=== PATIENT | male | born 1945 | race Caucasian/White ===

== ENCOUNTER → 2019-12-10 | Outpatient (CLI) | payer OTHER, BC | LOC: RAD 10:51 | DX: J98.11 Atelectasis (principal); M47.814 Spondylosis without myelopathy or radiculopathy, thoracic region; Z95.0 Presence of cardiac pacemaker ==

== ENCOUNTER → 2020-08-20 | Outpatient (CLI) | payer OTHER, BC | LOC: LAB 09:26 | PROVIDERS: ATTEND Internal Medicine | DX: Z20.828 Contact with and (suspected) exposure to other viral communicable diseases (principal) ==

== ENCOUNTER 2020-12-22 17:46 | Inpatient (IN) | payer OTHER, BC ==
[~2020-12-22] VITALS: Ht 172.7 cm; Wt 77.6 kg
[2020-12-22 17:49] VITALS: BP 164/92
[2020-12-22 18:44] LABS: ABSOLUTE NEUTROPHILS 6.4 thou/uL (1.4-8.2); BASOPHILS 0.8 % (0.0-2.0); HEMOGLOBIN 12.9 gm/dL (14.0-18.0); LYMPHOCYTES 11.8 % (24.0-44.0); MCH 29.5 pg (26.0-34.0); MCHC 33.9 g/dL (28.0-37.0); MCV 86.9 fL (80.0-100.0); MONOCYTES 8.1 % (1.0-8.0); PLATELET COUNT 247 thou/uL (150-400); POLYS 79.3 % (36.0-66.0); RBC 4.38 mil/uL (4.50-6.00); RDW 12.9 % (10.5-14.5)
[2020-12-22 18:52] LABS: ANION GAP 11 mmol/L (7-16); BUN 36 mg/dL (7-18); CALCIUM 9.1 mg/dL (8.5-10.1); CHLORIDE 103 mmol/L (98-107); CO2 26 mmol/L (21-32); CREATININE 1.7 mg/dL (0.7-1.3); GLUCOSE 85 mg/dL (74-106); SODIUM 140 mmol/L (136-145)
[2020-12-22] MEDS ORDERED: TRELEGY ELLIPT1 EACH INH ×2 (18:55)
[2020-12-22] MEDS ORDERED: LOSARTAN POTAS100 MG PO ×2 (18:56)
[2020-12-22] MEDS ORDERED: METFORMIN HCL500 MG PO ×2 (18:56)
[2020-12-22] MEDS ORDERED: POTASSIUM CHLO10 ME1 PO ×2 (18:57)
[2020-12-22 18:58] LABS: APTT 22.9 Seconds (24.5-32.8); INR 1.07; PROTIME 11.6 Seconds (9.3-11.4)
[2020-12-22] MEDS ORDERED: AMLODIPINE BESY10 MG PO ×2 (18:58)
[2020-12-22] MEDS ORDERED: NITROSTAT0.4 M1 SUBLING ×2 (18:59)
[2020-12-22] MEDS ORDERED: VENTOLIN HFA 1818 GM INH ×2 (19:00)
[2020-12-22] MEDS ORDERED: FINASTERIDE5 MG PO ×2 (19:00)
[2020-12-22] MEDS ORDERED: TAMSULOSIN HCL0.4 MG PO ×2 (19:00)
[2020-12-22] MEDS ORDERED: DILT-XR180 MG PO ×2 (19:01)
[2020-12-22] MEDS ORDERED: SINGULAIR 10 MG10 M1 PO ×2 (19:01)
[2020-12-22] MEDS ORDERED: MUCINEX600 MG PO ×2 (19:01)
[2020-12-22] MEDS ORDERED: FUROSEMIDE 20 M20 M1 PO ×2 (19:01)
[2020-12-22] MEDS ORDERED: ASA81BEC PO ×2 (19:02)
[2020-12-22 19:03] LABS: ALBUMIN 3.7 g/dL (3.4-5.0); SGOT 18 U/L (15-37); SGPT 25 U/L (16-63); TOTAL BILIRUBIN 0.4 mg/dL (0.2-1.0); TOTAL PROTEIN 7.4 g/dL (6.4-8.2); TROPONIN-I <0.06 ng/mL (<0.06)
[2020-12-22 19:57] VITALS: BP 176/84
[2020-12-22 20:26] VITALS: BP 178/78
[2020-12-22 21:22] VITALS: BP 191/95
[2020-12-22] MEDS ORDERED: LIPITOR40 MG PO ×2 (23:57)
[2020-12-23 03:09] VITALS: BP 181/85
[2020-12-23 05:19] LABS: CHOLESTEROL 101 mg/dL (<200); HDL CHOLESTEROL 34 mg/dL (>40); LDL CHOLESTEROL 53 mg/dL (<100); TRIGLYCERIDE 71 mg/dL (<150); VLDL 14 mg/dL (<40)
[2020-12-23 05:26] LABS: CALCIUM 8.6 mg/dL (8.5-10.1); CREATININE 1.4 mg/dL (0.7-1.3); POTASSIUM 3.6 mmol/L (3.5-5.1)
[2020-12-23 05:51] LABS: SERUM ASSESSMENT Clear
--- NOTE | 2020-12-23 07:04 | EKG ---
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
[2020-12-23 08:00] VITALS: BP 175/78
--- NOTE | 2020-12-23 08:20 | NUR ---
ASSUMED PT CARE AT 0700. 0800 ASSESSMENT PERFORMED CHARTED. VSS. PTS GOAL TODAY IS POSSIBLE PACEMAKER BATTERY REPLACEMENT. PAIN MED ADMINISTERED FOR LEFT SHOULDER PAIN. WILL CONTINUE TO MONITOR AND FOLLOW POC.
--- NOTE | 2020-12-23 12:02 | NUR ---
PT SLEEPING, AT BEDSIDE. PT UPDATED ON PLAN OF CARE. VSS. WILL CONTINUE TO MONITOR AND FOLLOW POC.
[2020-12-23 12:22] VITALS: BP 158/62
--- NOTE | 2020-12-23 12:28 | NUR ---
CONSULT [id number] WAS COMPLETED BY THIS COUNTERINTELLIGENCE AGENT.
--- NOTE | 2020-12-23 12:29 | 2DMMODE ---
[facility] [place] [address] 2 D/M-MODE ECHOCARDIOGRAM Name: LANE MILLER Room #: 219-P ADM IN M.R.#: [id number] Admission: 12/22/20 Attend Phys: Ming Duran MD Discharge: Date of : 41 Report #: [id number] THIS REPORT FOR: cc: DARI - [place] family physician/PCP DARI - [place] family physician/PCP Fili Hay MD [facility] ~ APPROVED REPORT Study performed: 12/23/2020 08:45:55 EXAM: Comprehensive 2D, Doppler, and color-flow Echocardiogram Patient Location: Bedside Room #: 219 Status: routine BSA: 1.91 HR: 83 bpm BP: 181/85 mmHg Rhythm: Pacemaker Other Information Study Quality: Adequate Indications COPD Diabetes Atrial Fibrillation Pacemaker Syncope Hypertension/HDD 2D Dimensions RVDd: 28.01 mm IVSd: 10.07 (7-11mm) LVOT Diam: 18.97 (18-24mm) LVDd: 49.55 mm PWd: 9.71 (7-11mm) Ascending Ao: 30.14 (22-36mm) LVDs: 34.93 (25-40mm) Aortic Root: 26.51 mm IVC: 23.00 mm Volumes Left Atrial Volume (Systole) Single Plane 4CH: 44.34 mL Aortic Valve AoV Peak Grady.: 1.53 m/s [facility] [address] [place] [address] 2 D/M-MODE ECHOCARDIOGRAM Name: LANE MILLER Room #: 219-P ADM IN M.R.#: [id number] Admission: 12/22/20 Attend Phys: Ming Duran MD Discharge: Date of : 41 Report #: [id number] AO Peak Gr.: 9.31 mmHg LVOT Max P.07 mmHg LVOT Max V: 1.23 m/s SANJAY Vmax: 2.28 cm2 Left Ventricle The left ventricle is normal size. There is normal LV segmental wall motion. There is normal left ventricular wall thickness. The left ventricular systolic function is normal. The left ventricular ejection fraction is within the normal range. LVEF is 50-55%. The left ventricular diastolic function is abnormal. Right Ventricle The right ventricle is normal size. The right ventricular systolic function is normal. Pacemaker lead is present in the right ventricle. Atria The left atrium size is normal. The right atrium size is normal. Aortic Valve The aortic valve is normal in structure. No aortic regurgitation is present. There is no aortic valvular stenosis. Mitral Valve The mitral valve is normal in structure. Trace mitral regurgitation. No evidence of mitral valve stenosis. Tricuspid Valve The tricuspid valve is normal in structure. There is no tricuspid valve regurgitation noted. Pulmonic Valve The pulmonary valve is normal in structure. Great Vessels The aortic root is normal in size. IVC is dilated and collapses <50% with inspiration. Pericardium Trace pericardial effusion. <Conclusion> Normal left ventricular size/wall thickness Ejection fraction of 55% Normal right ventricular size/function Normal atrial size [facility] [address] [place] [address] 2 D/M-MODE ECHOCARDIOGRAM Name: LANE MILLER Room #: 219-P ADM IN M.R.#: [id number] Admission: 12/22/20 Attend Phys: Ming Duran MD Discharge: Date of : 41 Report #: [id number] Color-flow Doppler study was performed of the aortic/mitral/tricuspid/pulmonary valve Normal aortic valve structure and function Trace mitral valve insufficiency No tricuspid valve insufficiency detected Normal aortic root size Trace pericardial effusion, no tamponade physiology <ELECTRONICALLY SIGNED> By: Fili Hay MD, FACC 12/23/20 1229 1229 28 Fili Hay MD, FACC /INF
--- NOTE | 2020-12-23 15:03 | NUR ---
Case opened to follow for dc planning. Math Professor visited with the pt at bedside this afternoon. His has gone home. He is a&ox4 and reports they live in a first floor apt in [place]. He is normally active and indep and drives. He has no dme or hh history. His pcp was Dr. Tramaine Chaves for many years, however he has made an appt with Dr. Barnes on 12-28-20 as a new pt since Dr Church . The pt is being seen by cardiology and ortho. Plans noted for battery replacement of his pacemaker tomorrow. Ortho saw him today and notes possible RCT to lt shoulder however he can not have an MRI. Plan is for outpt f/u and conservative tx. He has been evaluated by PT/OT and is open to HH referral at [place]. He declined a listing and denied a preference. Referral being faxed to [facility] by the nc assortment planner. Therapy will see him again tomorrow. Cm role introduced. Pt notes he is hoping to sleep better tonight.
[2020-12-23 16:00] VITALS: BP 148/69
--- NOTE | 2020-12-23 16:14 | NUR ---
[facility] RECEIVED CONFIRMATION WILL F/U WITH TATE IN THE AM.
--- NOTE | 2020-12-23 16:26 | NUR ---
PT RESTING FOR 1600 ASSESSMENT. VSS. WILL CONTINUE TO MONITOR AND FOLLOW POC.
[2020-12-23 20:30] VITALS: BP 173/89
[2020-12-23 23:06] LABS: GLYCOHEMOGLOBIN (HGB A1C) 6.1 % (4.8-5.6)
[2020-12-24 00:42] VITALS: BP 176/85
[2020-12-24 04:00] VITALS: BP 175/82
--- NOTE | 2020-12-24 07:48 | NUR ---
SLEPT MOST OF SHIFT. UP WITH SBA NEEDED. VOIDING PER URINAL. DENIES COMPLAINTS OF PAIN OR SHORTNESS OF AIR. NPO PAST MN FOR POSSIBLE PM BATTERY CHANGE. WORKING ON GOALS AND PLAN OF CARE FOR NOC. PROGRESSING TOWARDS GOALS FOR PROCEDURE. CONTINUE TO ASSJOLEEN KEENE.
[2020-12-24 08:28] VITALS: BP 178/93
--- NOTE | 2020-12-24 08:47 | NUR ---
ASSUMED PT CARE AT 0700. PT RESTING. 0830, ASSESSMENT PERFORMED CHARTED. VSS. PTS PLAN TODAY IS PACEMAKER BATTERY CHANGE. PT STATES SHOULDER PAIN IS IMPROVING. WILL CONTINUE TO MONITOR AND FOLLOW POC.
[2020-12-24 10:20] LABS: CREATININE 1.2 mg/dL (0.7-1.3)
--- NOTE | 2020-12-24 11:08 | NUR ---
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
[2020-12-24] MEDS ORDERED: LIDOPATCH1 EACH TRANSDERM ×2 (13:40)
[2020-12-24] MEDS ORDERED: HYDROCODON-ACE1 EAC7 PO ×2 (14:04)
--- NOTE | 2020-12-24 14:17 | NUR ---
CONTACTED [facility] AND CANCELLED REFERRAL PER ELAN/CASE MANAGEMENT.
--- NOTE | 2020-12-24 15:34 | NUR ---
Pt dc'd to home today with outpt f/u. Therapy cleared him for dc to home. No hh referral needed and referral with Clarissa canceled.
--- NOTE | 2020-12-27 08:17 | HC ---
[facility] [place] [address] CONSULTATION Name: LANE MILLER Room #: 219-P [facility] IN M.R.#: [id number] Admission: 12/22/20 Attend Phys: Sudhir Escobar MD Discharge: 12/24/20 Date of : 41 Report #: [id number] THIS REPORT FOR: cc: DARI - [place] family physician/PCP DARI - No family physician/PCP Dennis Brown MD ~ DATE OF SERVICE: 12/24/2020 HISTORY OF PRESENT ILLNESS: We were asked by Dr. Blunt to see the patient. The patient is a 75-year-old admitted for syncope. The patient has a history of pacemaker implant and the patient was told that the battery had met end of life criteria. No specific plans were made to replace the pacemaker. The patient states he was shopping at [employer] with his and passed out. The patient was admitted by ambulance. Evaluation has included CT scan of the head, which showed no important abnormalities. CT angiogram done for a stroke protocol shows calcified lesions in both carotid arteries measuring 70% on the right and 50% on the left. The patient also has had orthopedic evaluation for shoulder problem, but no specific fracture or dislocation was identified. The patient states he is back to normal other than the injuries sustained in the fall and he describes no other preceding neurologic deficit or subsequent deficit. PAST MEDICAL HISTORY: Significant for hypertension, diabetes mellitus, and atrial fibrillation. ALLERGIES: None known. MEDICATIONS AT HOME: Trelegy Ellipta, losartan, metformin, potassium, finasteride, tamsulosin, diltiazem, furosemide, Singulair, amlodipine, nitroglycerin, albuterol, Mucinex, and aspirin. SOCIAL HISTORY: The patient is retired. Former smoker. REVIEW OF SYSTEMS: CONSTITUTIONAL: Denies fever or chills. EYES: Denies vision change. HENT: Denies sore throat, hearing loss, sinus problems. RESPIRATORY: Denies cough, sputum production, shortness of breath. CARDIAC: Denies angina or palpitations. GASTROINTESTINAL: Denies nausea, vomiting, blood. GENITOURINARY: Denies urgency or frequency. MUSCULOSKELETAL: Shoulder pain from the fall. No preexisting bone or joint problems. SKIN: Denies rash or infection. [facility] [address] [place] [address] CONSULTATION Name: LANE MILLER Room #: 219-P [facility] IN M.R.#: [id number] Admission: 12/22/20 Attend Phys: Sudhir Escobar MD Discharge: 12/24/20 Date of : 41 Report #: [id number] NEUROLOGIC: Denies new deficit other than that related to the fall and syncope. PSYCHIATRIC: Denies depression, anxiety. HEMATOLOGIC: Denies bleeding or bruisability. ENDOCRINE: Denies goiter or tremor. PHYSICAL EXAMINATION: GENERAL: The patient is lying in bed comfortably. VITAL SIGNS: Temperature 36.5, heart rate 103, respiratory rate 18, blood pressure 178/93, and O2 sat 96 on room air. HEENT: No scleral icterus, no arcus. NECK: No mass. I hear no bruit. CHEST: Clear to auscultation. HEART: Regular rhythm. No murmur. ABDOMEN: Soft. EXTREMITIES: No clubbing, cyanosis or edema. VASCULAR: 2+ popliteal pulses. SKIN: No rash or infection. PSYCHIATRIC: Shows insight into problem and is oriented and appropriate. ASSESSMENT: The patient appears to have had a syncopal episode related to pacemaker at end of life criteria. We note the patient is scheduled for generator change today. It is interesting that the recent carotid duplex shows no important carotid disease while the CT scan demonstrates upto 70% lesion. This may be because the carotid lesion is so calcified, it is difficult to ascertain the exact degree of stenosis. It may be necessary for the patient to have an arteriogram to make a final decision regarding the severity of this lesion. In any event that is of secondary importance until the pacemaker gets treated. __ were placed. We will see the patient in the office for followup to arrange further studies. Thank you for the consult. <ELECTRONICALLY SIGNED> By: Dennis Brown MD 12/27/20 0817 0856 0932 Dennis Brown MD /nt
--- NOTE | 2021-01-13 12:32 | HC ---
[facility] [place] [address] CONSULTATION Name: LANE MILLER Room #: 219-P [facility] IN M.R.#: [id number] Admission: 12/22/20 Attend Phys: Sudhir Escobar MD Discharge: 12/24/20 Date of : 41 Report #: [id number] THIS REPORT FOR: cc: DARI - [place] family physician/PCP DARI - No family physician/PCP Brian Blunt MD ~ DATE OF SERVICE: 12/22/2020 HISTORY OF PRESENT ILLNESS: This is a 75-year-old male patient who was evaluated by me for the possibility of stroke. I talked to Emergency Room physician before seeing the patient and after seeing the patient. I called the nurse practitioner or the hospitalist today and talked to her and the patient himself is able to provide fairly well history. He said that in 2006 he had a seizure-like episode. After workup, they determined that he had a fracture of lumbar vertebra and he has to have surgery. He underwent more workup and it was noticed that his heart is the one which was causing his symptoms, that is the only time he thinks he had any seizure. He has a pacemaker. His battery is running out and he had another episode of syncope where he fell, had a seizure and he hit his head. He was brought to Emergency Room and the weakness on the left side was noticed. Subsequently, both the Emergency Room physician and I noted that is very localized to the left shoulder and he is complaining of a lot of pain in the left shoulder and he would not just move. REVIEW OF SYSTEMS: A 14-point review of system was carried out in this patient. It does not look like the patient has hypoglycemia. He does have some kidney function abnormality. His GFR is only 39 and looks like in the Emergency Room he underwent whole stroke protocol CT, which will use a lot of dye. His industrial engineer is Dr. Baeza. That was his relevant 14-point review of systems. PAST MEDICAL HISTORY: Positive for similar spell before the pacemaker was put in. FAMILY HISTORY: Unremarkable. SOCIAL HISTORY: The patient has his whom Emergency Room physician talked to. When I saw the patient, she was not available. PHYSICAL EXAMINATION: The patient's examination indicates he was alert, responsive, able to follow simple and complex command. He was able to tell me what month it is, who the president is. There was some question of cranial nerve examination showing hemianopsia. I looked at the patient. I do not see any evidence of hemianopsia or facial weakness. He does not move his left shoulder. He says it hurts too much, but otherwise his strength looks good in all 4 extremities and his position sense and reflexes are symmetrical in both lower extremities. He moves his left hand and left elbow normally. [facility] [address] [place] [address] CONSULTATION Name: LANE MILLER Room #: 219-P DIS IN M.R.#: [id number] Admission: 12/22/20 Attend Phys: Sudhir Escobar MD Discharge: 12/24/20 Date of : 41 Report #: [id number] patient's blood pressure is 178/78, respiration is 12, pulse is 84. LABORATORY DATA: His GFR is only 39. His blood sugar was [address] perfusion is normal. IMPRESSION: The symptom does not appear to be from stroke. It is a focal pathology of the left shoulder. Initially, they had indicated that he was weak on the left side, but when I see him it is only in the shoulder. PLAN: I talked to the hospitalist nurse practitioner, my recommendation was that either get a CT scan of the C-spine or ask them to reconstruct and look at the images to make sure if fracture can be excluded. Pathology appears to be in the shoulder and you might like to consult orthopedic. He needs evaluation by Cardiology to look for any cardiac etiology, which can explain the patient's symptoms and I will suggest consulting them. This patient's GFR was low and he did have CT stroke protocol in the Emergency Room and I will suggest continuing the fluid until tomorrow and repeating his BUN and creatinine tomorrow. I ordered those fluids. I do not think it is even a primary neurological problem. He does have carotid stenosis, which needs to be addressed and the Vascular Surgery can be consulted and they can follow up with them as an outpatient to monitor that, but I did order some fluid because he got some dye and his GFR is low. Thank you very much for this referral. <ELECTRONICALLY SIGNED> By: Brian Blunt MD 01/13/21 1232 11 28 Brian Blunt MD /nt
--- NOTE | 2021-02-08 10:55 | P ---
[facility] [place] [address] PROCEDURE REPORT Name: LANE MILLER Room #: 219-P [facility] IN M.R.#: [id number] Admission: 12/22/20 Attend Phys: Sudhir Escobar MD Discharge: 12/24/20 Date of : 43 Report #: [id number] THIS REPORT FOR: cc: FAM - No family physician/PCP FAM - No family physician/PCP Julio Zuñiga MD ~ DOC #: [id number] Julio Zuñiga MD DATE OF SERVICE: 12/24/2020 PREOPERATIVE DIAGNOSES: 1. Pacemaker at end of service. 2. Sick sinus syndrome. 3. Syncope. PROCEDURE: Pacemaker generator exchange. HISTORY: The patient is a 75-year-old with history of sick sinus syndrome who had a syncopal episode and presented to the emergency room and his pacemaker was noted to be at end of service with no battery life left. He was admitted and is here for pacemaker generator exchange. ANESTHESIA: The patient underwent MAC anesthesia with no anesthesia related complications. INDICATIONS: The patient underwent informed consent. We discussed the details of the procedure including the risks, which include but not limited to bleeding, infection, need for possible lead revisions. He understood these risks and is willing to proceed. DESCRIPTION OF PROCEDURE: The patient was brought to the EP laboratory in fasting and sedated state, prepped and draped in a sterile fashion. He received IV antibiotics prior to initiation of procedure. Next, I injected lidocaine at the prior incision site. Incision was made and the chronic pocket was opened. The old device was disconnected. Leads were inspected and found to be functioning normally. A new device was connected, tested and found to be functioning normally. Pocket was irrigated with vancomycin. Pocket was closed in 2 layers and surgical glue was placed to outer skin layer. There were no procedural-related complications. The patient awoke neurologically and hemodynamically intact. The explanted pacemaker was a product #5816 [employer] Concierge, serial #[id number]. The newly implanted device was Bownty, model #W3DR01, serial #[id number]. The atrial lead was 5076, 45 cm, serial #[id number], implanted on 11/01/2006. The RV lead was a [employer] model #1688T, serial #[id number]. The atrial lead demonstrated P waves at 2.1 millivolts, pacing impedance 380 ohms, pacing threshold 0.5 volts at 0.4 [facility] [address] [place] [address] PROCEDURE REPORT Name: LANE MILLER Room #: 219-P [facility] IN M.R.#: [id number] Admission: 12/22/20 Attend Phys: Sudhir Escobar MD Discharge: 12/24/20 Date of : 41 Report #: [id number] milliseconds. The RV lead demonstrated R waves of 18, pacing impedance 380 ohms, pacing threshold 2 volts at 0.6 millivolts. The device was programmed to the MVP mode 60-130. CONCLUSIONS: 1. Successful pacemaker generator exchange. 2. Satisfactory atrial and ventricular pacing and sensing thresholds. Julio Zuñiga MD C/MARILYN/GARETH <ELECTRONICALLY SIGNED> By: Julio Zuñiga MD 02/08/21 1055 1148 2134 Julio Zuñiga MD /nt
== END 2020-12-24 15:00 | disposition home or self-care (01) | DRG 258 ==
LOC: ER 17:46 → EROBS 19:16 → 2N 19:16
PROVIDERS: Emergency Medicine; Nurse Practitioner; Nurse Practitioner Family; ADMIT Hospitalist; ATTEND Hospitalist
PROC: 0JPT0PZ Removal of Cardiac Rhythm Related Device from Trunk Subcutaneous Tissue and Fascia, Open Approach (ICD-10-PCS; principal; 2020-12-24)
PROC: 0JH604Z Insertion of Pacemaker, Single Chamber into Chest Subcutaneous Tissue and Fascia, Open Approach (ICD-10-PCS; principal; 2020-12-24)
DX: T82.111A Breakdown (mechanical) of cardiac pulse generator (battery), initial encounter (principal); N17.0 Acute kidney failure with tubular necrosis; I10 Essential (primary) hypertension; E11.9 Type 2 diabetes mellitus without complications; N40.0 Benign prostatic hyperplasia without lower urinary tract symptoms; J44.9 Chronic obstructive pulmonary disease, unspecified; E78.5 Hyperlipidemia, unspecified; M25.512 Pain in left shoulder; I25.10 Atherosclerotic heart disease of native coronary artery without angina pectoris; I49.5 Sick sinus syndrome; I48.0 Paroxysmal atrial fibrillation; Z20.822 Contact with and (suspected) exposure to COVID-19; R53.81 Other malaise; R63.4 Abnormal weight loss; Y83.8 Other surgical procedures as the cause of abnormal reaction of the patient, or of later complication, without mention of misadventure at the time of the procedure; Y92.89 Other specified places as the place of occurrence of the external cause; Z87.891 Personal history of nicotine dependence; Z45.010 Encounter for checking and testing of cardiac pacemaker pulse generator [battery]; Z68.26 Body mass index [BMI] 26.0-26.9, adult; Z79.82 Long term (current) use of aspirin; Z79.899 Other long term (current) drug therapy
CPT/HCPCS: 10081; 62110; 62900; 70005

== ENCOUNTER 2020-12-28 11:03 | Emergency (ER) | payer OTHER, BC ==
[~2020-12-28] VITALS: Ht 172.7 cm; Wt 78.9 kg
--- NOTE | ~2020-12-28 | EKG ---
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
[~2020-12-28 11:03] MED LIST: AMLODIPINE BESY10 MG PO; ASA81BEC PO; DILT-XR180 MG PO; FINASTERIDE5 MG PO; FUROSEMIDE 20 M20 M1 PO; HYDROCODON-ACE1 EAC7 PO; LIDOPATCH1 EACH TRANSDERM; LIPITOR40 MG PO; LOSARTAN POTAS100 MG PO; METFORMIN HCL500 MG PO; MUCINEX600 MG PO; NITROSTAT0.4 M1 SUBLING; POTASSIUM CHLO10 ME1 PO; SINGULAIR 10 MG10 M1 PO; TAMSULOSIN HCL0.4 MG PO; TRELEGY ELLIPT1 EACH INH; VENTOLIN HFA 1818 GM INH
[2020-12-28] MEDS ORDERED: PREDNISONE 20 M20 M1 PO (12:01)
[2020-12-28] MEDS ORDERED: LASIX 40 MG TAB40 MG PO (12:02)
[2020-12-28] MEDS ORDERED: B COMPLEX1 EACH PO (12:03)
[2020-12-28] MEDS ORDERED: MOBIC7.5 MG PO (12:03)
[2020-12-28] MEDS ORDERED: VITAMIN E1000 UNIT PO (12:04)
[2020-12-28] MEDS ORDERED: KLOR-CON 10 ER10 MEQ PO (12:05)
[2020-12-28 13:55] VITALS: BP 149/69
--- NOTE | 2020-12-29 06:58 | EKG ---
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
== END 2020-12-28 13:55 | disposition home or self-care (01) ==
LOC: ER 11:03
DX: R94.31 Abnormal electrocardiogram [ECG] [EKG] (principal); I10 Essential (primary) hypertension; E11.9 Type 2 diabetes mellitus without complications; E78.5 Hyperlipidemia, unspecified; J44.9 Chronic obstructive pulmonary disease, unspecified; I48.91 Unspecified atrial fibrillation; I25.10 Atherosclerotic heart disease of native coronary artery without angina pectoris; Z79.899 Other long term (current) drug therapy

== ENCOUNTER → 2020-12-31 | Outpatient (CLI) | payer OTHER, BC ==
[~2020-12-31] MED LIST changes: +B COMPLEX1 EACH PO; +KLOR-CON 10 ER10 MEQ PO; +LASIX 40 MG TAB40 MG PO; +MOBIC7.5 MG PO; +PREDNISONE 20 M20 M1 PO; +VITAMIN E1000 UNIT PO
== END ==
LOC: SJCVCIMAG
PROVIDERS: ATTEND Nuclear Medicine Nuclear Cardiology
DX: I65.23 Occlusion and stenosis of bilateral carotid arteries (principal); I10 Essential (primary) hypertension; J44.9 Chronic obstructive pulmonary disease, unspecified; I25.10 Atherosclerotic heart disease of native coronary artery without angina pectoris; E11.51 Type 2 diabetes mellitus with diabetic peripheral angiopathy without gangrene; M19.90 Unspecified osteoarthritis, unspecified site; E78.5 Hyperlipidemia, unspecified; I73.9 Peripheral vascular disease, unspecified; I48.0 Paroxysmal atrial fibrillation; N40.0 Benign prostatic hyperplasia without lower urinary tract symptoms; I77.9 Disorder of arteries and arterioles, unspecified; Z98.890 Other specified postprocedural states; Z95.0 Presence of cardiac pacemaker; Z79.82 Long term (current) use of aspirin; Z79.84 Long term (current) use of oral hypoglycemic drugs; Z79.899 Other long term (current) drug therapy; Z87.891 Personal history of nicotine dependence; Z82.49 Family history of ischemic heart disease and other diseases of the circulatory system

== ENCOUNTER → 2021-01-28 | Outpatient (CLI) | payer OTHER, BC | LOC: SJCVC 09:22 | PROVIDERS: ATTEND Internal Medicine | DX: I10 Essential (primary) hypertension (principal); J44.9 Chronic obstructive pulmonary disease, unspecified; I25.10 Atherosclerotic heart disease of native coronary artery without angina pectoris; I73.9 Peripheral vascular disease, unspecified; E78.00 Pure hypercholesterolemia, unspecified; I49.5 Sick sinus syndrome; E11.9 Type 2 diabetes mellitus without complications; M19.90 Unspecified osteoarthritis, unspecified site; E78.5 Hyperlipidemia, unspecified; Z95.0 Presence of cardiac pacemaker; Z98.61 Coronary angioplasty status; Z79.84 Long term (current) use of oral hypoglycemic drugs; Z79.82 Long term (current) use of aspirin; Z79.899 Other long term (current) drug therapy; Z87.891 Personal history of nicotine dependence; Z82.49 Family history of ischemic heart disease and other diseases of the circulatory system ==

== ENCOUNTER → 2021-02-05 | Outpatient (CLI) | payer OTHER, BC | LOC: SJCVCIMAG 08:40 | PROVIDERS: ATTEND Internal Medicine | DX: I10 Essential (primary) hypertension (principal); I15.0 Renovascular hypertension; N28.1 Cyst of kidney, acquired; I70.1 Atherosclerosis of renal artery; J44.9 Chronic obstructive pulmonary disease, unspecified; E11.51 Type 2 diabetes mellitus with diabetic peripheral angiopathy without gangrene; I25.10 Atherosclerotic heart disease of native coronary artery without angina pectoris; I73.9 Peripheral vascular disease, unspecified; M19.90 Unspecified osteoarthritis, unspecified site; E78.5 Hyperlipidemia, unspecified; Z95.0 Presence of cardiac pacemaker; Z79.82 Long term (current) use of aspirin; Z79.84 Long term (current) use of oral hypoglycemic drugs; Z79.899 Other long term (current) drug therapy; Z87.891 Personal history of nicotine dependence; Z82.49 Family history of ischemic heart disease and other diseases of the circulatory system ==

== ENCOUNTER → 2021-03-05 | Outpatient (CLI) | payer OTHER, BC | LOC: SJCVC 08:45 | PROVIDERS: ATTEND Internal Medicine | DX: I10 Essential (primary) hypertension (principal); I49.3 Ventricular premature depolarization; J44.9 Chronic obstructive pulmonary disease, unspecified; I25.10 Atherosclerotic heart disease of native coronary artery without angina pectoris; E78.5 Hyperlipidemia, unspecified; M19.90 Unspecified osteoarthritis, unspecified site; E11.9 Type 2 diabetes mellitus without complications; E78.00 Pure hypercholesterolemia, unspecified; I73.9 Peripheral vascular disease, unspecified; Z95.0 Presence of cardiac pacemaker; Z95.1 Presence of aortocoronary bypass graft; Z98.61 Coronary angioplasty status; Z79.84 Long term (current) use of oral hypoglycemic drugs; Z79.899 Other long term (current) drug therapy; Z87.891 Personal history of nicotine dependence; Z82.49 Family history of ischemic heart disease and other diseases of the circulatory system ==

== ENCOUNTER → 2021-04-02 | Outpatient (CLI) | payer OTHER, BC | LOC: SJCVC 13:01 | PROVIDERS: ATTEND Internal Medicine | DX: E78.00 Pure hypercholesterolemia, unspecified (principal); I10 Essential (primary) hypertension; J44.9 Chronic obstructive pulmonary disease, unspecified; I25.10 Atherosclerotic heart disease of native coronary artery without angina pectoris; E11.9 Type 2 diabetes mellitus without complications; I73.9 Peripheral vascular disease, unspecified; Z95.0 Presence of cardiac pacemaker; Z87.891 Personal history of nicotine dependence; Z72.89 Other problems related to lifestyle; Z79.899 Other long term (current) drug therapy ==

== ENCOUNTER → 2021-05-03 | Outpatient (CLI) | payer OTHER, BC | LOC: SJCVC 09:40 | PROVIDERS: ATTEND Internal Medicine | DX: I10 Essential (primary) hypertension (principal); I25.10 Atherosclerotic heart disease of native coronary artery without angina pectoris; E78.5 Hyperlipidemia, unspecified; J44.9 Chronic obstructive pulmonary disease, unspecified; M19.90 Unspecified osteoarthritis, unspecified site; E11.51 Type 2 diabetes mellitus with diabetic peripheral angiopathy without gangrene; I73.9 Peripheral vascular disease, unspecified; Z95.0 Presence of cardiac pacemaker; Z79.82 Long term (current) use of aspirin; Z79.84 Long term (current) use of oral hypoglycemic drugs; Z79.899 Other long term (current) drug therapy; Z87.891 Personal history of nicotine dependence; Z82.49 Family history of ischemic heart disease and other diseases of the circulatory system ==

== ENCOUNTER → 2021-06-01 | Outpatient (CLI) | payer OTHER, BC | LOC: SJCVC 11:10 | PROVIDERS: ATTEND Internal Medicine | DX: I10 Essential (primary) hypertension (principal); J44.9 Chronic obstructive pulmonary disease, unspecified; I25.10 Atherosclerotic heart disease of native coronary artery without angina pectoris; E11.9 Type 2 diabetes mellitus without complications; E78.00 Pure hypercholesterolemia, unspecified; I73.9 Peripheral vascular disease, unspecified; Z87.891 Personal history of nicotine dependence; Z72.89 Other problems related to lifestyle; Z79.82 Long term (current) use of aspirin; Z79.899 Other long term (current) drug therapy ==

== ENCOUNTER → 2021-06-29 | Outpatient (CLI) | payer OTHER, BC | LOC: SJCVC 09:07 | PROVIDERS: ATTEND Internal Medicine | DX: I10 Essential (primary) hypertension (principal); I25.10 Atherosclerotic heart disease of native coronary artery without angina pectoris; I73.9 Peripheral vascular disease, unspecified; J44.9 Chronic obstructive pulmonary disease, unspecified; E78.5 Hyperlipidemia, unspecified; I77.9 Disorder of arteries and arterioles, unspecified; E78.00 Pure hypercholesterolemia, unspecified; R09.89 Other specified symptoms and signs involving the circulatory and respiratory systems; Z87.891 Personal history of nicotine dependence; Z72.89 Other problems related to lifestyle; Z95.0 Presence of cardiac pacemaker ==

== ENCOUNTER → 2021-07-09 | Outpatient (CLI) | payer OTHER, BC | LOC: SJCVCIMAG 09:14 | PROVIDERS: ATTEND Internal Medicine | DX: I70.203 Unspecified atherosclerosis of native arteries of extremities, bilateral legs (principal); I10 Essential (primary) hypertension; I25.10 Atherosclerotic heart disease of native coronary artery without angina pectoris; J44.9 Chronic obstructive pulmonary disease, unspecified; M19.90 Unspecified osteoarthritis, unspecified site; E78.00 Pure hypercholesterolemia, unspecified; Z79.82 Long term (current) use of aspirin; Z79.84 Long term (current) use of oral hypoglycemic drugs; Z79.899 Other long term (current) drug therapy; Z95.0 Presence of cardiac pacemaker; Z98.61 Coronary angioplasty status; Z72.89 Other problems related to lifestyle; Z87.891 Personal history of nicotine dependence ==

== ENCOUNTER → 2021-07-14 | Outpatient (CLI) | payer OTHER, BC | LOC: SJCVC 14:00 | PROVIDERS: ATTEND Nuclear Medicine Nuclear Cardiology | DX: I73.9 Peripheral vascular disease, unspecified (principal); I77.9 Disorder of arteries and arterioles, unspecified; I25.10 Atherosclerotic heart disease of native coronary artery without angina pectoris; I10 Essential (primary) hypertension; I48.0 Paroxysmal atrial fibrillation; E78.00 Pure hypercholesterolemia, unspecified; J44.9 Chronic obstructive pulmonary disease, unspecified; E11.9 Type 2 diabetes mellitus without complications; Z87.891 Personal history of nicotine dependence; Z72.89 Other problems related to lifestyle; Z79.82 Long term (current) use of aspirin; Z79.84 Long term (current) use of oral hypoglycemic drugs; Z79.899 Other long term (current) drug therapy; Z95.0 Presence of cardiac pacemaker; Z95.1 Presence of aortocoronary bypass graft; Z95.5 Presence of coronary angioplasty implant and graft ==

== ENCOUNTER → 2021-07-22 | Outpatient (CLI) | payer OTHER, BC ==
[~2021-07-22] VITALS: Ht 172.7 cm; Wt 78.0 kg
[~2021-07-22] MED LIST changes: +HYDRALAZINE 2525 MG; +PLAVIX 75 MG TA75 MG PO
[2021-07-22 10:02] VITALS: BP 152/80
[2021-07-22 10:06] LABS: HEMATOCRIT 34.6 % (42.0-52.0); HEMOGLOBIN 11.4 gm/dL (14.0-18.0); MCH 28.6 pg (26.0-34.0); MCHC 32.9 g/dL (28.0-37.0); MCV 86.8 fL (80.0-100.0); RBC 3.99 mil/uL (4.50-6.00); RDW 13.8 % (10.5-14.5); WBC 7.1 thou/uL (4.0-11.0)
[2021-07-22 10:26] LABS: CALCIUM 8.9 mg/dL (8.5-10.1); CREATININE 1.8 mg/dL (0.7-1.3); POTASSIUM 3.9 mmol/L (3.5-5.1)
== END | disposition home or self-care (01) ==
LOC: CATH 07-20 07:33
PROVIDERS: ATTEND Nuclear Medicine Nuclear Cardiology
DX: I70.238 Atherosclerosis of native arteries of right leg with ulceration of other part of lower leg (principal); L97.919 Non-pressure chronic ulcer of unspecified part of right lower leg with unspecified severity; I70.1 Atherosclerosis of renal artery; I10 Essential (primary) hypertension; I25.10 Atherosclerotic heart disease of native coronary artery without angina pectoris; I48.91 Unspecified atrial fibrillation; E11.9 Type 2 diabetes mellitus without complications; E78.5 Hyperlipidemia, unspecified; J44.9 Chronic obstructive pulmonary disease, unspecified; I25.2 Old myocardial infarction; Z98.890 Other specified postprocedural states; Z79.899 Other long term (current) drug therapy; Z87.891 Personal history of nicotine dependence; Z79.01 Long term (current) use of anticoagulants

== ENCOUNTER → 2021-09-08 | Outpatient (CLI) | payer OTHER, BC | LOC: SJCVCIMAG 07:23 | PROVIDERS: ATTEND Internal Medicine | DX: T82.856A Stenosis of peripheral vascular stent, initial encounter (principal); I10 Essential (primary) hypertension; J44.9 Chronic obstructive pulmonary disease, unspecified; I73.9 Peripheral vascular disease, unspecified; E78.00 Pure hypercholesterolemia, unspecified; E13.9 Other specified diabetes mellitus without complications; J45.909 Unspecified asthma, uncomplicated; I49.5 Sick sinus syndrome; I25.10 Atherosclerotic heart disease of native coronary artery without angina pectoris; Z95.0 Presence of cardiac pacemaker; Z87.891 Personal history of nicotine dependence; Z72.89 Other problems related to lifestyle; Z79.82 Long term (current) use of aspirin; Z79.84 Long term (current) use of oral hypoglycemic drugs; Z79.899 Other long term (current) drug therapy ==

== ENCOUNTER → 2021-11-09 | Outpatient (CLI) | payer OTHER, BC | LOC: SJCVC 08:42 | PROVIDERS: ATTEND Internal Medicine | DX: I10 Essential (primary) hypertension (principal); J44.9 Chronic obstructive pulmonary disease, unspecified; I25.10 Atherosclerotic heart disease of native coronary artery without angina pectoris; E78.00 Pure hypercholesterolemia, unspecified; Z95.5 Presence of coronary angioplasty implant and graft; Z95.0 Presence of cardiac pacemaker; Z87.891 Personal history of nicotine dependence; Z72.89 Other problems related to lifestyle; Z79.82 Long term (current) use of aspirin; Z79.84 Long term (current) use of oral hypoglycemic drugs; Z79.899 Other long term (current) drug therapy ==